=== PATIENT | female | born 1975 | race Two or more races ===

== ENCOUNTER 2021-08-19 14:27 | Emergency (ER) | payer MEDICAID ==
[~2021-08-19] VITALS: Ht 154.9 cm; Wt 72.6 kg
[2021-08-19 16:07] VITALS: BP 126/74
[2021-08-19] MEDS ORDERED: CYCL-837 PO (17:30)
== END 2021-08-19 17:41 | disposition home or self-care (01) ==
LOC: EDBD 14:27 → ER 14:27
DX: S16.1XXA Strain of muscle, fascia and tendon at neck level, initial encounter (principal); M54.12 Radiculopathy, cervical region; X50.1XXA Overexertion from prolonged static or awkward postures, initial encounter; Y93.89 Activity, other specified; Y92.89 Other specified places as the place of occurrence of the external cause; Y99.8 Other external cause status
CPT/HCPCS: 72040

== ENCOUNTER 2021-10-21 17:04 | Emergency (ER) | payer MEDICAID ==
[~2021-10-21] VITALS: Ht 154.9 cm; Wt 74.8 kg
[~2021-10-21 17:04] MED LIST: CYCL-837 PO
[2021-10-21] MEDS: methylPREDNISolone SOD SUCC 125 MG/2 ML VL IV ONE (17:40)
[2021-10-21] MEDS: FAMOTIDINE (10MG/ML) 2ML VL IV ONE (17:40)
[2021-10-21] MEDS: ALBUTEROL SULF 2.5 MG/0.5ML(0.5%) NEB SOLN NEB ONE (17:45)
[2021-10-21] MEDS ORDERED: EPIN0.3I24 IJ (18:29)
[2021-10-21 19:12] LABS: Basophils # (auto) 0 10 ^3/uL (0-0.2); Basophils % (auto) 0.3 % (0.0-2.0); Eosinophils # (auto) 0.1 10 ^3/uL (0-0.8); Eosinophils % (auto) 0.7 % (0.0-7.0); Hematocrit 42.3 % (36.0-46.0); Hemoglobin 13.9 g/dL (12.2-16.2); Lymphocytes # (auto) 2.2 10 ^3/uL (0.4-5.4); Lymphocytes % (auto) 17.8 % (10.0-50.0); Mean Corpuscular Hemoglobin 27.6 pg (28.0-32.0); Mean Corpuscular Hgb Conc. 32.9 g/dL (32.0-36.0); Mean Corpuscular Volume 83.8 fL (80.0-100.0); Monocytes # (auto) 0.5 10 ^3/uL (0-1.3); Neutrophils # (auto) 9.4 10 ^3/uL (1.6-8.6); Neutrophils % (auto) 77.2 % (37.0-80.0); Red Blood Cells 5.05 10^6/uL (4.0-5.20); Red Cell Distribution Width 14.8 % (11.8-14.3); White Blood Cell 12.2 10^3/uL (4.4-10.8)
[2021-10-21 19:15] VITALS: BP 117/67
[2021-10-21 19:21] LABS: BUN/Creatinine Ratio 13.6; Calcium 8.6 mg/dL (8.5-10.1); Potassium 3.4 mmol/L (3.5-5.1)
== END 2021-10-21 20:15 | disposition home or self-care (01) ==
LOC: EDBD 17:04 → ER 17:04
DX: T78.2XXA Anaphylactic shock, unspecified, initial encounter (principal); X58.XXXA Exposure to other specified factors, initial encounter
CPT/HCPCS: 36415; 71045; 80048; 85025; 93005; 94640; 96374; 96375; 99285; J2930; J3490

== ENCOUNTER 2022-12-30 10:38 | Emergency (ER) | payer MEDICAID ==
[~2022-12-30] VITALS: Ht 154.9 cm; Wt 79.6 kg
[~2022-12-30 10:38] MED LIST changes: +EPIN0.3I24 IJ
[2022-12-30 11:29] VITALS: BP 118/82; PULSE 69; RESP 18; TEMP 98.3; O2SAT 98
[2022-12-30 12:30] LABS: Basophils # (auto) 0.1 10 ^3/uL (0-0.2); Basophils % (auto) 0.9 % (0.0-2.0); Eosinophils # (auto) 0.2 10 ^3/uL (0-0.8); Eosinophils % (auto) 2.2 % (0.0-7.0); Hematocrit 44.5 % (36.0-46.0); Hemoglobin 14.6 g/dL (12.2-16.2); Lymphocytes % (auto) 28.1 % (10.0-50.0); Mean Corpuscular Hemoglobin 27.5 pg (28.0-32.0); Mean Corpuscular Hgb Conc. 32.9 g/dL (32.0-36.0); Mean Corpuscular Volume 83.7 fL (80.0-100.0); Monocytes # (auto) 0.5 10 ^3/uL (0-1.3); Monocytes % (auto) 6.8 % (0.0-12.0); Neutrophils # (auto) 4.5 10 ^3/uL (1.6-8.6); Nucleated Red Blood Cells % 0.1 %; Red Blood Cells 5.32 10^6/uL (4.0-5.20); Red Cell Distribution Width 16.6 % (11.8-14.3); White Blood Cell 7.2 10^3/uL (4.4-10.8)
[2022-12-30 12:52] LABS: Calcium 9.1 mg/dL (8.5-10.1); Potassium 3.9 mmol/L (3.5-5.1)
== END 2022-12-30 12:50 | disposition left against medical advice (07) ==
LOC: ER 10:38
DX: M54.2 Cervicalgia (principal); G89.29 Other chronic pain; Z88.1 Allergy status to other antibiotic agents; Z88.6 Allergy status to analgesic agent; Z79.899 Other long term (current) drug therapy
CPT/HCPCS: 36415; 80048; 84443; 85025